=== PATIENT | female | born 1955 | race Caucasian/White ===

== ENCOUNTER 2019-09-11 15:26 | Inpatient (IN) ==
[2019-09-11] MEDS ORDERED: ONDANSETRON 4 MG/2 ML VIAL IV PRN (15:46)
[2019-09-11] MEDS: SODIUM CHLORIDE 0.45% 1,000 ML IV SCH (17:15)
[2019-09-11] MEDS: ACETAMINOPHEN 325 MG TABLET PO PRN (17:22)
[2019-09-11 17:31] LABS: Basophils # 0.1 10*3/uL (0.0-0.2); Basophils % 0.5 % (0.0-0.8); Eosinophils % 0.2 % (0.00-10.9); Hematocrit 44.2 VOL% (35.7-47.0); Hemoglobin 14.7 GM/DL (12.0-16.0); Immature Granulocytes % 1.9 %; Immature Granulocytes Absolute 0.35 #; Lymphocytes # 0.8 10*3/uL (1.4-4.0); Lymphocytes % 4.5 % (21.3-54.2); Mean Corpuscular HGB Conc 33.3 GM/DL (32-36); Mean Corpuscular Volume 94.4 FL (87-102); Mean Platelet Volume 10.3 FL (9.6-12.0); Monocytes % 8.5 % (1.7-12.7); Neutrophils % 84.4 % (38.7-73.9); Platelet Count 290 T/CUMM (130-400); Red Blood Count 4.68 MC/CUMM (3.8-5.5); Red Cell Distribution Width 14.7 % (9.3-17.3); White Blood Count 18.1 T/CUMM (4-12)
[2019-09-11 17:42] LABS: INR 1.2; PT Patient Result 12.4 SECS (9.8-11.9)
[2019-09-11] MEDS: cefTRIAXone 1,000 MG in SYRINGE 1 EACH IV SCH (17:44)
[2019-09-11 17:56] LABS: Albumin 2.4 G/DL (3.4-5.0); Bilirubin,Total 1.1 MG/DL (0.2-1.0); Calcium 8.6 MG/DL (8.5-10.1); Osmolality,Calculated 273.7 MOS/KG (273-304); Total Protein 6.4 G/DL (6.4-8.3)
[2019-09-11 18:00] LABS: Ferritin 830.6 ng/ml (8-252)
[2019-09-11 18:03] LABS: Band Neutrophils 4 % (0-10); Eosinophils 1 % (0-10); Lymphocytes 6 % (20-55); Platelet Estimate Normal; Segmented Neutrophils 88 % (50-85); Total Cells Counted 100
[2019-09-11] MEDS: DOCUSATE SODIUM 100 MG CAPSULE PO SCH (20:52)
[2019-09-11] MEDS ORDERED: DOXYCYCLINE HYCLATE 100 MG CAPSULE PO SCH (21:00)
[2019-09-11] MEDS ORDERED: ENOXAPARIN 40 MG/0.4 ML SYRINGE SUBCUT SCH (21:00)
[2019-09-11 21:58] LABS: Apearance,Urine CLEAR (Clear); Bilirubin,Urine Negative (Negative); Blood, Urine Small mg/dL (Negative); Glucose,Urine (UA) Negative (Negative); Hyaline Casts,Urine 5 /LPF (0-3); Ketones,Urine Negative (Negative); Mucus,Urine Occasional /LPF (Occasional); Nitrite,Urine Negative (Negative); Protein,Urine 30 MG/DL; RBC,Urine 8 /HPF (0-4); Squamous Epithelial Cell,Urine Occasional /HPF (0-10); Urine Color Amber (Yellow); Urine Specific Gravity 1.018 (1.001-1.035); WBC,Urine 4 /HPF (0-6)
[2019-09-12] MEDS: ACETAMINOPHEN 325 MG TABLET PO PRN ×3 (00:31→16:32)
[2019-09-12] MEDS: SODIUM CHLORIDE 0.45% 1,000 ML IV SCH ×4 (00:31→19:10)
[2019-09-12] MEDS ORDERED: AZITHROMYCIN INJ 500 MG in SODIUM CHLORIDE 0.9% 250 ML IV SCH (06:30)
[2019-09-12] MEDS: DOCUSATE SODIUM 100 MG CAPSULE PO SCH ×2 (08:54→21:39)
[2019-09-12] MEDS: PANTOPRAZOLE 40 MG TABLET PO SCH (08:54)
[2019-09-12] MEDS: AZITHROMYCIN 250 MG TABLET PO SCH (08:54)
[2019-09-12] MEDS: VANCOMYCIN INJ 1,750 MG in SODIUM CHLORIDE 0.9% 500 ML IV SCH (13:38)
[2019-09-12] MEDS: cefTRIAXone 1,000 MG in SYRINGE 1 EACH IV SCH (16:32)
[2019-09-12] MEDS: ENOXAPARIN 40 MG/0.4 ML SYRINGE SUBCUT SCH (21:39)
[2019-09-13] MEDS: VANCOMYCIN INJ 1,750 MG in SODIUM CHLORIDE 0.9% 500 ML IV SCH ×2 (00:55→14:10)
[2019-09-13] MEDS: SODIUM CHLORIDE 0.45% 1,000 ML IV SCH ×3 (04:04→12:00)
[2019-09-13] MEDS: ENOXAPARIN 40 MG/0.4 ML SYRINGE SUBCUT SCH ×2 (08:30→21:38)
[2019-09-13] MEDS: AZITHROMYCIN 250 MG TABLET PO SCH (08:30)
[2019-09-13] MEDS: PANTOPRAZOLE 40 MG TABLET PO SCH (08:30)
[2019-09-13] MEDS: DOCUSATE SODIUM 100 MG CAPSULE PO SCH ×2 (08:30→21:37)
[2019-09-13] MEDS: cefTRIAXone 1,000 MG in SYRINGE 1 EACH IV SCH (17:36)
[2019-09-14] MEDS: VANCOMYCIN INJ 1,750 MG in SODIUM CHLORIDE 0.9% 500 ML IV SCH ×2 (00:12→12:14)
[2019-09-14] MEDS: DOCUSATE SODIUM 100 MG CAPSULE PO SCH ×2 (08:15→21:23)
[2019-09-14] MEDS: PANTOPRAZOLE 40 MG TABLET PO SCH (08:15)
[2019-09-14] MEDS: AZITHROMYCIN 250 MG TABLET PO SCH (08:15)
[2019-09-14] MEDS: ENOXAPARIN 40 MG/0.4 ML SYRINGE SUBCUT SCH ×2 (08:15→21:23)
[2019-09-14 10:46] LABS: Basophils # 0.1 10*3/uL (0.0-0.2); Basophils % 1.1 % (0.0-0.8); Eosinophils # 0.6 10*3/uL (0.0-0.87); Eosinophils % 5.1 % (0.00-10.9); Hematocrit 37.1 VOL% (35.7-47.0); Immature Granulocytes % 7.6 %; Immature Granulocytes Absolute 0.85 #; Lymphocytes # 1.1 10*3/uL (1.4-4.0); Mean Corpuscular HGB Conc 33.7 GM/DL (32-36); Mean Corpuscular Volume 95.4 FL (87-102); Mean Platelet Volume 9.7 FL (9.6-12.0); Monocytes % 8.4 % (1.7-12.7); Neutrophils % 67.8 % (38.7-73.9); Platelet Count 291 T/CUMM (130-400); Red Blood Count 3.89 MC/CUMM (3.8-5.5)
[2019-09-14 10:55] LABS: Hemoglobin 12.5 GM/DL (12.0-16.0); White Blood Count 11.2 T/CUMM (4-12)
[2019-09-14 11:09] LABS: Calcium 8.2 MG/DL (8.5-10.1); Osmolality,Calculated 272.8 MOS/KG (273-304)
[2019-09-14] MEDS: POTASSIUM CHLORIDE RIDER 10 MEQ in PREMIX 1 EACH IV PRN ×5 (11:30→16:40)
[2019-09-14 11:31] LABS: Band Neutrophils 4 % (0-10); Eosinophils 8 % (0-10); Lymphocytes 9 % (20-55); Metamyelocytes 1 %; Segmented Neutrophils 77 % (50-85); Total Cells Counted 100
[2019-09-14] MEDS: SODIUM CHLORIDE 0.45% 1,000 ML IV SCH (15:26)
[2019-09-14] MEDS: cefTRIAXone 1,000 MG in SYRINGE 1 EACH IV SCH (17:43)
[2019-09-15] MEDS: VANCOMYCIN INJ 1,750 MG in SODIUM CHLORIDE 0.9% 500 ML IV SCH ×2 (01:00→12:05)
[2019-09-15] MEDS: POTASSIUM CHLORIDE RIDER 10 MEQ in PREMIX 1 EACH IV PRN ×3 (01:08→04:45)
[2019-09-15] MEDS: SODIUM CHLORIDE 0.45% 1,000 ML IV SCH (04:00)
[2019-09-15] MEDS: AZITHROMYCIN 250 MG TABLET PO SCH (09:24)
[2019-09-15] MEDS: DOCUSATE SODIUM 100 MG CAPSULE PO SCH ×2 (09:24→21:20)
[2019-09-15] MEDS: ENOXAPARIN 40 MG/0.4 ML SYRINGE SUBCUT SCH ×2 (09:24→21:20)
[2019-09-15] MEDS: PANTOPRAZOLE 40 MG TABLET PO SCH (09:24)
[2019-09-15] MEDS: POTASSIUM CHLORIDE 8 MEQ CAPSULE PO SCH ×3 (09:24→21:20)
[2019-09-15 09:53] LABS: Calcium 8.5 MG/DL (8.5-10.1); Osmolality,Calculated 272.8 MOS/KG (273-304)
[2019-09-15] MEDS: cefTRIAXone 1,000 MG in SYRINGE 1 EACH IV SCH (17:18)
[2019-09-16] MEDS: VANCOMYCIN INJ 1,750 MG in SODIUM CHLORIDE 0.9% 500 ML IV SCH (00:11)
[2019-09-16] MEDS: SODIUM CHLORIDE 0.45% 1,000 ML IV SCH (00:11)
[2019-09-16 08:15] VITALS: BP 158/75
[2019-09-16] MEDS: PANTOPRAZOLE 40 MG TABLET PO SCH (09:18)
[2019-09-16] MEDS: POTASSIUM CHLORIDE 8 MEQ CAPSULE PO SCH (09:18)
[2019-09-16] MEDS: ENOXAPARIN 40 MG/0.4 ML SYRINGE SUBCUT SCH (09:18)
[2019-09-16] MEDS: DOCUSATE SODIUM 100 MG CAPSULE PO SCH (09:18)
[2019-09-16] MEDS: AZITHROMYCIN 250 MG TABLET PO SCH (09:18)
== END 2019-09-16 10:17 | disposition home or self-care (01) | DRG 194 ==
LOC: N.2E 16:04 → SUPCPDRO 16:04
PROVIDERS: ADMIT Family Medicine; ATTEND Family Medicine